=== PATIENT | female | born 1930 | race Caucasian/White ===

== ENCOUNTER 2016-10-20 | Outpatient (CLI) | payer MEDICARE, OTHER | END 2016-10-20 03:01 | disposition critical access hospital (66) | CPT/HCPCS: A0425; A0427 ==

== ENCOUNTER 2016-10-20 03:11 | Emergency (ER) | payer MEDICARE, OTHER ==
[2016-10-20] MEDS ORDERED: MAGNESIUM SULFATE 2 GRAM 50 ML IV ONE ×2 (04:42→04:48)
[2016-10-20] MEDS ORDERED: FUROSEMIDE 20 MG/2 ML VIAL IVP STA (04:42)
[2016-10-20] MEDS ORDERED: FUROSEMIDE 20 MG/2 ML VIAL IVP ONE (04:48)
[2016-10-20] MEDS ORDERED: KETOROLAC 60 MG/2 ML VIAL IVP STA (06:46)
[2016-10-20] MEDS ORDERED: KETOROLAC 30 MG/ML VIAL ONE (06:47)
== END 2016-10-20 08:10 | disposition home or self-care (01) ==
DX: I11.0 Hypertensive heart disease with heart failure (principal); I50.9 Heart failure, unspecified; J45.21 Mild intermittent asthma with (acute) exacerbation; I25.10 Atherosclerotic heart disease of native coronary artery without angina pectoris; I25.2 Old myocardial infarction; Z95.1 Presence of aortocoronary bypass graft; Z79.82 Long term (current) use of aspirin; E03.9 Hypothyroidism, unspecified

== ENCOUNTER 2016-11-07 11:07 | Outpatient (CLI) | payer MEDICARE, OTHER | END 2016-11-07 11:08 | disposition home or self-care (01) | DX: I25.10 Atherosclerotic heart disease of native coronary artery without angina pectoris (principal); I51.9 Heart disease, unspecified; I44.7 Left bundle-branch block, unspecified; I35.0 Nonrheumatic aortic (valve) stenosis; Z95.1 Presence of aortocoronary bypass graft ==

== ENCOUNTER 2017-05-04 10:05 | Outpatient (CLI) | payer MEDICARE, OTHER ==
[2017-05-04 11:02] LABS: ALBUMIN/GLOBULIN RATIO 1.3 (1.0-2.2); BILIRUBIN,TOTAL 0.5 mg/dL (0.2-1.0); CALCIUM 9.9 mg/dL (8.5-10.3); MAGNESIUM 1.6 mg/dL (1.7-2.8); POTASSIUM 4.1 mmol/L (3.5-5.0); TOTAL PROTEIN 6.8 g/dL (6.7-8.2)
== END 2017-05-04 10:06 | disposition home or self-care (01) ==
LOC: LAB 10:05
PROVIDERS: ATTEND Internal Medicine Cardiovascular Disease
DX: I25.10 Atherosclerotic heart disease of native coronary artery without angina pectoris (principal); I10 Essential (primary) hypertension; I51.9 Heart disease, unspecified; I44.7 Left bundle-branch block, unspecified; I35.0 Nonrheumatic aortic (valve) stenosis; Z95.1 Presence of aortocoronary bypass graft
CPT/HCPCS: 36415; 80053; 83735

== ENCOUNTER 2017-06-11 10:49 | Outpatient (CLI) | payer MEDICARE, OTHER | END 2017-06-11 10:50 | disposition home or self-care (01) | LOC: LAB 10:49 | PROVIDERS: ATTEND Internal Medicine Cardiovascular Disease | DX: E83.42 Hypomagnesemia (principal); I25.10 Atherosclerotic heart disease of native coronary artery without angina pectoris; I44.7 Left bundle-branch block, unspecified; Z95.1 Presence of aortocoronary bypass graft; I35.0 Nonrheumatic aortic (valve) stenosis; I77.9 Disorder of arteries and arterioles, unspecified | CPT/HCPCS: 36415; 83735 ==

== ENCOUNTER 2019-01-17 11:23 | Outpatient (CLI) | payer MEDICARE, OTHER | END 2019-01-17 11:24 | disposition critical access hospital (66) | LOC: EMS 11:23 | PROVIDERS: ATTEND Surgery | DX: R42 Dizziness and giddiness (principal) | CPT/HCPCS: A0425; A0427 ==

== ENCOUNTER 2019-01-17 12:09 | Emergency (ER) | payer MEDICARE, OTHER ==
[2019-01-17 12:38] LABS: BASOPHILS # (AUTO) 0.1 10^3/uL (0.0-0.1); BASOPHILS % (AUTO) 1.3 %; EOSINOPHILS # (AUTO) 0.1 10^3/uL (0.0-0.7); EOSINOPHILS % (AUTO) 1.3 %; HGB - HEMOGLOBIN 12.6 g/dL (12.0-16.0); LYMPHOCYTES # (AUTO) 1.1 10^3/uL (1.5-3.5); LYMPHOCYTES % (AUTO) 14.8 %; MEAN CORPUSCULAR HEMOGLOBIN 31.2 pg (27.0-31.0); MEAN CORPUSCULAR HGB CONC 33.3 g/dL (32.0-36.0); MEAN CORPUSCULAR VOLUME 93.8 fL (81.0-99.0); MEAN PLATELET VOLUME 7.6 fL (7.9-10.8); MONOCYTES # (AUTO) 0.6 10^3/uL (0.0-1.0); NEUTROPHILS # (AUTO) 5.7 10^3/uL (1.5-6.6); NEUTROPHILS % (AUTO) 74.6 %; PLT - PLATELET COUNT 171 10^3/uL (130-450); RED BLOOD COUNT 4.03 10^6/uL (4.20-5.40); RED CELL DISTRIBUTION WIDTH 12.9 % (12.0-15.0); WHITE BLOOD COUNT 7.7 x10^3/uL (4.8-10.8)
[2019-01-17 12:50] LABS: ALBUMIN 3.5 g/dL (3.2-5.5); ALBUMIN/GLOBULIN RATIO 1.3 (1.0-2.2); BILIRUBIN,TOTAL 0.5 mg/dL (0.2-1.0); CALCIUM 9.8 mg/dL (8.5-10.3); CREATININE 1.7 mg/dL (0.4-1.0); TOTAL PROTEIN 6.1 g/dL (6.7-8.2)
[2019-01-17] MEDS ORDERED: SODIUM CHLORIDE 0.9% 1,000 ML IV ONE (12:56)
--- NOTE | 2019-01-17 12:58 | ED Physician Documentation ---
History of Present Illness - Stated complaint Stated Complaint: DIZZY - Chief complaint Chief Complaint: Neuro - History obtained from History obtained from: Patient, EMS - History of Present Illness Timing: Today - Additonal information Additional information: 88-year-old female with a history of congestive heart failure who is on furosemide was out at a memorial service today in the sun when she went to go stand up, she became dizzy, was not able to fully stand up. She did not have complete syncope and she is brought to the hospital by ambulance with acute dizziness.Her symptoms are now resolved. She feels well while she is laying flat and she has received about 300 mL's of saline. Review of Systems Constitutional: denies: Fever Eyes: denies: Decreased vision Ears: denies: Ear pain Nose: denies: Rhinorrhea / runny nose, Congestion Throat: denies: Sore throat Cardiac: denies: Chest pain / pressure, Palpitations Respiratory: reports: Cough (the usual that she is used to from the lisinopril). 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 : Nocturia HEENT: None Psych: None Musculoskeletal: Osteoarthritis Derm: None - Past Surgical History Past Surgical History: Yes General: Appendectomy, Colonoscopy /SALESPERSON CHILDREN'S SHOES: Hysterectomy Cardiovascular: CABG HEENT: Tonsil/Adenoidectomy - Present Medications Home Medications: Ambulatory Orders Medication Instructions Recorded Confirmed Aspirin [Aspir 81] 162 mg PO DAILY 05/29/14 01/17/19 Calcium Citrate/Vitamin D3 1 tab PO BID 05/29/14 01/17/19 [Calcium Citrate-Vit D3 Caplet] Levothyroxine [Synthroid] 50 mcg PO DAILY 05/29/14 01/17/19 Lisinopril 20 mg PO DAILY 05/29/14 01/17/19 Multivit-Min/FA/Lycopene/Lut 1 tab PO DAILY 05/29/14 01/17/19 [Centrum Silver Tablet] Omeprazole 20 mg PO DAILY 05/29/14 01/17/19 Rosuvastatin Calcium [Crestor] 20 mg PO QPM 06/05/14 01/17/19 metFORMIN [Glucophage] 1,000 mg PO BIDWM 08/07/15 01/17/19 Metoprolol Succinate [Toprol Xl] 50 mg PO BID 10/20/16 01/17/19 hydroCHLOROthiazide 25 mg PO DAILY #30 tablet 10/20/16 01/17/19 [Hydrochlorothiazide] - Allergies Allergies/Adverse Reactions: Allergies Allergy/AdvReac Type Severity Reaction Status Date / Time codeine Allergy Unknown Verified 01/17/19 12:24 lanolin Allergy Unknown Verified 01/17/19 12:24 Latex, Natural Rubber Allergy Unknown Verified 01/17/19 12:24 - Social History Does the pt smoke?: No Smoking Status: Never smoker Does the pt drink ETOH?: Yes ETOH Use: Wine Does the pt have substance abuse?: No - Immunizations Immunizations are current?: No Immunizations: TDAP >10years/unknown - POLST Patient has POLST: No PD ED PE NORMAL - Vitals Vital signs reviewed: Yes (wide pulse pressure ) - General General: Alert and oriented X 3, No acute distress, Well developed/nourished - HEENT HEENT: Atraumatic, PERRL, EOMI - Neck Neck: Supple, no meningeal sign, No bony TTP - Cardiac Cardiac: No murmur. No: Other (distant heart sounds with 2/6 holosystolic murmer at LSB) - Respiratory Respiratory: No respiratory distress, Clear bilaterally - Abdomen Abdomen: Soft, Non tender - Back Back: No CVA TTP, No spinal TTP - Derm Derm: Normal color, Warm and dry, No rash - Extremities Extremities: No deformity, No edema - Neuro Neuro: Alert and oriented X 3, manager style 2-12 intact, No motor deficit, No sensory deficit, Normal speech Eye Opening: Spontaneous Motor: Obeys Commands Verbal: Oriented GCS Score: 15 - Psych Psych: Normal mood, Normal affect Results - Vitals Vitals: Vital Signs - 24 hr 01/17/19 01/17/19 01/17/19 12:11 13:00 13:40 Temperature 36.5 C Heart Rate 67 61 63 Respiratory 18 18 16 Rate Blood Pressure 130/55 L 150/59 H 172/62 H O2 Saturation 95 96 98 Oxygen O2 Source Room air - Labs Labs: Laboratory Tests 01/17/19 01/17/19 01/17/19 12:29 12:29 12:29 WBC 7.7 RBC 4.03 L Hgb 12.6 Hct 37.8 MCV 93.8 MCH 31.2 H MCHC 33.3 RDW 12.9 Plt Count 171 MPV 7.6 L Neut # (Auto) 5.7 Lymph # (Auto) 1.1 L Meade # (Auto) 0.6 Eos # (Auto) 0.1 Baso # (Auto) 0.1 Absolute Nucleated RBC 0.00 Nucleated RBC % 0.0 Sodium 142 Potassium 4.1 Chloride 104 Carbon Dioxide 24 Anion Gap 14.0 H BUN 32 H Creatinine 1.7 H Estimated GFR (MDRD) 28 L Glucose 168 H Calcium 9.8 Total Bilirubin 0.5 AST 21 ALT 14 Alkaline Phosphatase 51 Troponin I 0.04 Total Protein 6.1 L Albumin 3.5 Globulin 2.6 Albumin/Globulin Ratio 1.3 Lipase 28 Urine Color Urine Clarity Urine pH Ur Specific Apollo Urine Protein Urine Glucose (UA) Urine Ketones Urine Occult Blood Urine Nitrite Urine Bilirubin Urine Urobilinogen Ur Leukocyte Esterase Urine RBC Urine WBC Ur Squamous Epith Cells Urine Bacteria Urine Casts Ur Microscopic Review Urine Culture Comments 01/17/19 13:33 WBC RBC Hgb Hct MCV MCH MCHC RDW Plt Count MPV Neut # (Auto) Lymph # (Auto) Meade # (Auto) Eos # (Auto) Baso # (Auto) Absolute Nucleated RBC Nucleated RBC % Sodium Potassium Chloride Carbon Dioxide Anion Gap BUN Creatinine Estimated GFR (MDRD) Glucose Calcium Total Bilirubin AST ALT Alkaline Phosphatase Troponin I Total Protein Albumin Globulin Albumin/Globulin Ratio Lipase Urine Color YELLOW Urine Clarity CLEAR Urine pH 5.5 Ur Specific Apollo 1.010 Urine Protein NEGATIVE Urine Glucose (UA) NEGATIVE Urine Ketones NEGATIVE Urine Occult Blood NEGATIVE Urine Nitrite NEGATIVE Urine Bilirubin NEGATIVE Urine Urobilinogen 0.2 (NORMAL) Ur Leukocyte Esterase TRACE H Urine RBC None Seen Urine WBC 4-5 Ur Squamous Epith Cells RARE Squamous Urine Bacteria Rare Urine Casts 0-2 Hyaline Casts Ur Microscopic Review INDICATED Urine Culture Comments INDICATED Procedures - IVC sono (time) 1250 Bedside IVC sono: IVC measures (cm) (1.31), IVC collapsed c insp (cm) (complete), Dehydration (est 1 liter deficit after 300ml in.) PD MEDICAL DECISION MAKING - ED course Complexity details: reviewed results, re-evaluated patient, considered differential, d/w patient ED course: 88-year-old female with history of congestive heart failure who is on furosemide has developed a near syncope in the sun today and she is found to be dehydrated on interrogation the inferior vena cava. She is administered intravenous saline. By her lab study she has acute kidney injury associated. We will hold her diuretic for 2 days. Departure - Departure Disposition: 01 Home, Self Care Clinical Impression: Dehydration Condition: Stable Instructions: ED Dehydration Follow-Up: Radha Kay MD [Primary Care Provider] - Comments: Today you are dehydrated and you are on some lasix. Stop the lasix for 2 days and follow up with your regular doctor.
[2019-01-17 13:40] LABS: BILIRUBIN,URINE NEGATIVE (NEGATIVE); CLARITY,URINE CLEAR (CLEAR); GLUCOSE, URINE (UA) NEGATIVE (NEGATIVE); KETONES,URINE (UA) NEGATIVE (NEGATIVE); LEUKOCYTE ESTERASE, URINE TRACE (NEGATIVE); NITRITE,URINE NEGATIVE (NEGATIVE); OCCULT BLOOD,URINE NEGATIVE (NEGATIVE); PH,URINE 5.5 PH (5.0-7.5); PROTEIN,URINE NEGATIVE (NEGATIVE); UROBILINOGEN,URINE 0.2 (NORMAL) E.U./dL (NORMAL)
[2019-01-17 13:46] LABS: BACTERIA,URINE Rare /HPF (None Seen); CASTS, URINE 0-2 Hyaline Casts /LPF; RBC,URINE None Seen /HPF (0-5); SQUAMOUS EPITHELIAL CELL,UR RARE Squamous (<= Few)
[2019-01-17 14:22] VITALS: BP 154/65
== END 2019-01-17 14:22 | disposition home or self-care (01) ==
LOC: EDUNIT# → ED 12:09
DX: E86.0 Dehydration (principal); N17.9 Acute kidney failure, unspecified; R55 Syncope and collapse; I44.7 Left bundle-branch block, unspecified; I11.0 Hypertensive heart disease with heart failure; I50.9 Heart failure, unspecified; Z79.899 Other long term (current) drug therapy; E03.9 Hypothyroidism, unspecified; Z79.82 Long term (current) use of aspirin
CPT/HCPCS: 36415; 80053; 81001; 81003; 83690; 84484; 85025; 87086; 93005; 96360; 99284

== ENCOUNTER 2020-06-03 14:25 | Outpatient (CLI) | payer MEDICARE, OTHER | END 2020-06-03 14:26 | disposition critical access hospital (66) | LOC: EMS 14:25 | PROVIDERS: ATTEND Surgery | DX: R10.30 Lower abdominal pain, unspecified (principal) | CPT/HCPCS: A0425; A0429 ==

== ENCOUNTER 2020-06-03 14:39 | Emergency (ER) | payer MEDICARE, OTHER ==
[2020-06-03] MEDS ORDERED: SODIUM CHLORIDE 0.9% 1,000 ML IV STA (14:54)
--- NOTE | 2020-06-03 14:59 | ED Physician Documentation ---
PD HPI ABD PAIN - Stated complaint Stated Complaint: ABD PX - Chief complaint Chief Complaint: Abd Pain - History obtained from History obtained from: Patient - History of Present Illness Timing - onset: Today Timing - duration: Hours (1) Timing - details: Abrupt onset Pain level max: 5 Pain level now: 0 Quality: Cramping, Pain Location: Suprapubic Radiation: No: Chest, , Lower back, Left flank, Left shoulder, Right flank, Right shoulder, Upper back Improved by: Other (nothing) Worsened by: Other (nothing) Associated symptoms: No: Fever, Nausea, Vomiting, Hematemesis, Diarrhea, Constipation, Melena, Hematochezia, Dysuria, Hematuria, Chest pain, Dizzy, Near syncope / syncope, Loss of appetite, Weight loss, Vaginal bleeding Similar symptoms before: Has not had sx before Recently seen: Not recently seen Review of Systems Ten Systems: 10 systems reviewed and negative Constitutional: denies: Fever, Chills Ears: denies: Ear pain Nose: denies: Rhinorrhea / runny nose, Congestion Respiratory: denies: Cough GI: denies: Nausea, Vomiting, Diarrhea Skin: denies: Rash Musculoskeletal: denies: Neck pain, Back pain Neurologic: denies: Generalized weakness, Confused, Altered mental status PD PAST MEDICAL HISTORY - Past Medical History Cardiovascular: Congestive heart failure, Hypertension, High cholesterol, Coronary artery disease, [place], Other Respiratory: None Neuro: None Endocrine/Autoimmune: HyPOthyroidism GI: GERD 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 : Nocturia HEENT: None Psych: None Musculoskeletal: Osteoarthritis Derm: None - Past Surgical History Past Surgical History: Yes General: Appendectomy, Colonoscopy /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 REPAIRER: Hysterectomy Cardiovascular: CABG HEENT: Tonsil/Adenoidectomy - Present Medications Home Medications: Ambulatory Orders Medication Instructions Recorded Confirmed Aspirin [Aspir 81] 162 mg PO DAILY 05/29/14 01/17/19 Calcium Citrate/Vitamin D3 1 tab PO BID 05/29/14 01/17/19 [Calcium Citrate-Vit D3 Caplet] Levothyroxine [Synthroid] 50 mcg PO DAILY 05/29/14 01/17/19 Lisinopril 20 mg PO DAILY 05/29/14 01/17/19 Multivit-Min/FA/Lycopene/Lut 1 tab PO DAILY 05/29/14 01/17/19 [Centrum Silver Tablet] Omeprazole 20 mg PO DAILY 05/29/14 01/17/19 Rosuvastatin Calcium [Crestor] 20 mg PO QPM 06/05/14 01/17/19 metFORMIN [Glucophage] 1,000 mg PO BIDWM 08/07/15 01/17/19 Metoprolol Succinate [Toprol Xl] 50 mg PO BID 10/20/16 01/17/19 hydroCHLOROthiazide 25 mg PO DAILY #30 tablet 10/20/16 01/17/19 [Hydrochlorothiazide] Amox/Clav 875/125 [Augmentin] 1 each PO Q12H #20 tablet 06/03/20 - Allergies Allergies/Adverse Reactions: Allergies Allergy/AdvReac Type Severity Reaction Status Date / Time codeine Allergy Unknown Verified 06/03/20 14:53 lanolin Allergy Unknown Verified 06/03/20 14:53 Latex, Natural Rubber Allergy Unknown Verified 06/03/20 14:53 - Social History Does the pt smoke?: No Smoking Status: Never smoker Does the pt drink ETOH?: Yes Does the pt have substance abuse?: No - Immunizations Immunizations are current?: No Immunizations: TDAP >10years/unknown - POLST Patient has POLST: No PD ED PE NORMAL - Vitals Vital signs reviewed: Yes - General General: Alert and oriented X 3, No acute distress, Well developed/nourished - HEENT HEENT: PERRL, Moist mucous membranes - Neck Neck: Supple, no meningeal sign - Cardiac Cardiac: RRR, Strong equal pulses - Respiratory Respiratory: No respiratory distress, Clear bilaterally - Abdomen Abdomen: Soft, Non tender, Non distended - Back Back: No spinal TTP - Derm Derm: Warm and dry - Extremities Extremities: No calf tenderness / cord - Neuro Neuro: Alert and oriented X 3 - Psych Psych: Normal mood, Normal affect Results - Vitals Vitals: Vital Signs - 24 hr 06/03/20 06/03/20 06/03/20 14:45 15:08 15:38 Temperature 37.1 C 37.1 C 36.9 C Heart Rate 99 94 85 Respiratory 27 H 22 20 Rate Blood Pressure 158/78 H 137/57 H 126/68 O2 Saturation 94 92 92 06/03/20 16:06 Temperature Heart Rate 78 Respiratory 19 Rate Blood Pressure 147/55 H O2 Saturation 94 Oxygen O2 Source Room air - Labs Labs: Laboratory Tests 06/03/20 06/03/20 15:01 15:01 WBC 11.8 H RBC 4.63 Hgb 14.4 Hct 44.0 MCV 95.0 MCH 31.1 H MCHC 32.7 RDW 12.4 Plt Count 131 MPV 10.0 Neut # (Auto) Not Reportable Lymph # (Auto) Not Reportable Titus # (Auto) Not Reportable Eos # (Auto) Not Reportable Baso # (Auto) Not Reportable Absolute Nucleated RBC Not Reportable Total Counted 100 Band Neuts % (Manual) 13 H Abnorm Lymph % (Manual) 0 Nucleated RBC % Not Reportable Neutrophils # (Manual) 11.0 H Lymphocytes # (Manual) 0.1 L Monocytes # (Manual) 0.7 Eosinophils # (Manual) 0.0 Basophils # (Manual) 0.0 Differential Comment MANUAL DIFFERENTIAL Manual Slide Review Indicated Platelet Estimate NORMAL (130-450,000) Platelet Morphology NORMAL APPEARANCE RBC Morph Micro Appear NORMAL APPEARANCE Sodium 139 Potassium 3.7 Chloride 100 L Carbon Dioxide 25 Anion Gap 14.0 H BUN 24 H Creatinine 1.4 H Estimated GFR (MDRD) 35 L Glucose 200 H Calcium 10.7 H Total Bilirubin 0.9 AST 26 ALT 14 Alkaline Phosphatase 78 Total Protein 7.3 Albumin 3.8 Globulin 3.5 Albumin/Globulin Ratio 1.1 Lipase 22 - Rads (name of study) CT abd/pelvis Radiology: Prelim report reviewed, EMP read contemporaneously, See rad report PD MEDICAL DECISION MAKING - ED course Complexity details: reviewed results, re-evaluated patient, considered differential, d/w patient ED course: 89-year-old female with leukocytosis and diverticulitis. Will place on antibiotics. Discussed the possibilities of antibiotic associated diarrhea and C. difficile with the patient. She accepts these risks. She is well- appearing, nontoxic. Patient counseled regarding signs and symptoms for which I believe and urgent re-evaluation would be necessary. Patient with good understanding of and agreement to plan and is comfortable going home at this time This document was made in part using voice recognition software. While efforts are made to proofread this document, sound alike and grammatical errors may occur. 1. Diverticulosis and circumferential wall thickening and pericolonic fat stranding within the mid sigmoid colon suspicious for acute diverticulitis. No perforation or abscess. 2. Dense aortic atherosclerosis. 3. The appendix is not visualized; however there are no ancillary findings to suggest acute appendicitis. Departure - Departure Disposition: Home, Self Care Clinical Impression: Diverticulitis Condition: Good Instructions: ED Diverticulitis Follow-Up: Radha Kay MD [Primary Care Provider] - Prescriptions: Amox/Clav 875/125 [Augmentin] 1 each PO Q12H #20 tablet Comments: Take all antibiotics until gone. return if you worsen. You have diverticulitis today.
[2020-06-03 15:20] LABS: BASOPHILS % (AUTO) 0.3 %; EOSINOPHILS % (AUTO) 1.8 %; HGB - HEMOGLOBIN 14.4 g/dL (12.0-16.0); LYMPHOCYTES % (AUTO) 1.9 %; MEAN CORPUSCULAR HEMOGLOBIN 31.1 pg (27.0-31.0); MEAN CORPUSCULAR HGB CONC 32.7 g/dL (32.0-36.0); MONOCYTES % (AUTO) 1.9 %; NEUTROPHILS % (AUTO) 93.4 %; PLT - PLATELET COUNT 131 10^3/uL (130-450); RED BLOOD COUNT 4.63 10^6/uL (4.20-5.40); RED CELL DISTRIBUTION WIDTH 12.4 % (12.0-15.0); WHITE BLOOD COUNT 11.8 x10^3/uL (4.8-10.8)
[2020-06-03 15:26] LABS: ALBUMIN 3.8 g/dL (3.2-5.5); ALBUMIN/GLOBULIN RATIO 1.1 (1.0-2.2); BILIRUBIN,TOTAL 0.9 mg/dL (0.2-1.0); CALCIUM 10.7 mg/dL (8.5-10.3); CREATININE 1.4 mg/dL (0.4-1.0); TOTAL PROTEIN 7.3 g/dL (6.7-8.2)
[2020-06-03 15:27] LABS: ABNORMAL LYMPHS % (MANUAL) 0 %
[2020-06-03] MEDS ORDERED: IOVERSOL 320 100 ML VIAL IVP ONE ×2 (15:40→16:27)
[2020-06-03 15:46] LABS: BAND NEUTROPHILS % (MANUAL) 13 %; LYMPHOCYTES # (MANUAL) 0.1 10^3/uL (1.5-3.5); LYMPHOCYTES % (MANUAL) 1 %; MONOCYTES # (MANUAL) 0.7 10^3/uL (0.0-1.0)
[2020-06-03 15:48] LABS: DIFFERENTIAL COMMENT MANUAL DIFFERENTIAL; PLATELET ESTIMATE, MANUAL NORMAL (130-450,000) (NORMAL); PLATELET MORPHOLOGY NORMAL APPEARANCE (NORMAL); RBC MORPHOLOGY (MULTIPLE) NORMAL APPEARANCE (NORMAL)
--- NOTE | 2020-06-03 16:11 | CT Report ---
PROCEDURE: Abdomen/Pelvis W INDICATIONS: Abdominal pain, lower abdomen CONTRAST: IV CONTRAST: Optiray 320 ml: 100 PO CONTRAST: *NO PO CONTRAST TECHNIQUE: After the administration of IV contrast, 5 mm thick sections acquired from the diaphragms to the symp hysis. 5 mm thick coronal and sagittal reformats were acquired. For radiation dose reduction, the f ollowing was used: automated exposure control, adjustment of mA and/or kV according to patient size. COMPARISON: None. FINDINGS: Image quality: Excellent. ABDOMEN: Lung bases: Lung bases are clear. Heart size is normal. There is a large hiatal hernia. Solid organs: Liver and spleen are normal in size and enhancement. Gallbladder is unremarkable Zackery iary system is non dilated. Pancreas enhances normally. No adrenal nodules. The right kidney is mod erately atrophic. Both kidneys demonstrate normal enhancement however. No hydronephrosis. Peritoneum and bowel: Bowel loops demonstrate normal overall wall thickness and caliber. There are e xtensive sigmoid colon diverticular outpouchings present. Mild pericolonic fat stranding is present w ithin the mid sigmoid colon. There is also some mucosal thickening in this region. No pneumatosis or pneumoperitoneum. The appendix is not visualized; however there are no ancillary findings to suggest acute appendicitis. Nodes and vessels: No retroperitoneal or mesenteric adenopathy by size criteria. Aorta and inferior vena cava are normal in size. Dense atheromatous calcifications are present thr oughout the abdominal aorta and the iliac arteries. Miscellaneous: No ventral hernias. PELVIS: Genitourinary: Bladder wall thickness is normal. Miscellaneous: No inguinal hernias or adenopathy. Bones: No suspicious bony lesions. No vertebral body compression fractures. IMPRESSION: 1. Diverticulosis and circumferential wall thickening and pericolonic fat stranding within the mid si gmoid colon suspicious for acute diverticulitis. No perforation or abscess. 2. Dense aortic atherosclerosis. 3. The appendix is not visualized; however there are no ancillary findings to suggest acute appendici tis. Reviewed by: Leola Quach MD on 06/03/2020 4:09 PM PDT Approved by: Leola Quach MD on 06/03/2020 4:09 PM PDT Station ID: [id number]
[2020-06-03] MEDS ORDERED: AMOX/CLAV 875 MG/125 MG TABLET PO STA (16:13)
[2020-06-03 16:22] LABS: BILIRUBIN,URINE NEGATIVE (NEGATIVE); GLUCOSE, URINE (UA) 100 mg/dL (NEGATIVE); KETONES,URINE (UA) 15 mg/dL (NEGATIVE); LEUKOCYTE ESTERASE, URINE NEGATIVE (NEGATIVE); NITRITE,URINE NEGATIVE (NEGATIVE); OCCULT BLOOD,URINE SMALL (NEGATIVE); PROTEIN,URINE 30 mg/dL (NEGATIVE); UROBILINOGEN,URINE 0.2 (NORMAL) E.U./dL (NORMAL)
[2020-06-03 16:24] LABS: CLARITY,URINE CLEAR (CLEAR)
[2020-06-03 16:30] LABS: BACTERIA,URINE Rare /HPF (None Seen); EPITHELIAL CELLS,UR RARE Transitional /HPF (<= Few); SQUAMOUS EPITHELIAL CELL,UR NONE SEEN (<= Few)
[2020-06-03 16:35] VITALS: BP 155/64
== END 2020-06-03 17:02 | disposition home or self-care (01) ==
LOC: EDSEX → EDUNIT# → ED 14:39
DX: K57.92 Diverticulitis of intestine, part unspecified, without perforation or abscess without bleeding (principal); I70.0 Atherosclerosis of aorta; I11.0 Hypertensive heart disease with heart failure; I50.9 Heart failure, unspecified; Z95.1 Presence of aortocoronary bypass graft
CPT/HCPCS: 36415; 51701; 74177; 80053; 81001; 83690; 85025; 87086; 99284; A9270; Q9967; 81003